=== PATIENT | female | born 1990 | race Caucasian/White ===

== ENCOUNTER 2024-11-26 10:49 | Emergency (ER) | payer BC ==
[~2024-11-26] VITALS: Ht 162.6 cm; Wt 68.0 kg
[2024-11-26] MEDS ORDERED: ONDANSETRON 4 MG/2 ML VIAL ONE (11:07)
[2024-11-26] MEDS ORDERED: MORPHINE SULFATE 4 MG/1 ML DISP.SYRIN ONE (11:07)
[2024-11-26] MEDS ORDERED: PANTOPRAZOLE SODIUM 40 MG VIAL ONE (11:07)
[2024-11-26] MEDS: IV NORMAL SALINE 1000 ML BAG IV ONE (11:13)
[2024-11-26] MEDS: MORPHINE SULFATE 2 MG/1 ML DISP.SYRIN IV ONE (11:14)
[2024-11-26] MEDS: PANTOPRAZOLE SODIUM IV 40 MG in IV DEXTROSE 5% 100 ML IV ONE (11:14)
[2024-11-26] MEDS: METOCLOPRAMIDE HCL 10 MG/2 ML VIAL IV ONE (11:14)
[2024-11-26 11:17] LABS: BASOPHILS # (AUTO) 0.1 K/UL (0.0-0.2); BASOPHILS % (AUTO) 0.6 % (0.0-2.0); EOSINOPHILS % (AUTO) 0.2 % (0.0-7.0); HEMATOCRIT 40.1 % (31.2-41.9); HEMOGLOBIN 13.9 g/dL (10.9-14.3); LYMPHOCYTES # (AUTO) 1.9 K/uL (0.8-4.8); LYMPHOCYTES % (AUTO) 21.4 % (20.5-51.5); MEAN CORPUSCULAR HEMOGLOBIN 29.9 uug (24.7-32.8); MEAN CORPUSCULAR HGB CONC 35 g/dL (32.3-35.6); MEAN CORPUSCULAR VOLUME 86.5 fL (75.5-95.3); MONOCYTES # (AUTO) 0.4 K/uL (0.1-1.30); MONOCYTES % (AUTO) 4.8 % (0.0-11.0); NEUTROPHILS # (AUTO) 6.4 K/uL (1.8-8.9); PLATELET COUNT (AUTO) 343 K/uL (179-408); RED BLOOD CELL COUNT(AUTO) 4.63 MIL/uL (3.63-4.92); RED CELL DISTRIBUTION WIDTH 12.5 % (12.3-17.7); WHITE BLOOD COUNT (AUTO) 8.8 K/uL (3.8-11.8)
[2024-11-26 11:21] LABS: *BILIRUBIN,URIN NEGATIVE (NEGATIVE); *BLOOD, URINE NEGATIVE (NEGATIVE); *CLARITY,URINE CLEAR (CLEAR); *COLOR,URINE YELLOW (YELLOW); *KETONES,URINE NEGATIVE (NEGATIVE); *PROTEIN,URINE TRACE (NEGATIVE); *UROBILINOGEN,URINE 0.2 E.U./dl (NORMAL); LEUKOCYTE ESTERASE ,URINE NEGATIVE (NEGATIVE); NITRITE, URINE NEGATIVE (NEGATIVE); PH,URINE 8.5 (5.0-8.0); UGLUCOSE NEGATIVE (NEGATIVE)
[2024-11-26 11:22] LABS: *URINE HCG, QUAL NEGATIVE (NEGATIVE)
[2024-11-26 11:23] LABS: DIFFERENTIAL COMMENT 1
[2024-11-26 11:24] LABS: BACTERIA,URINE FEW /HPF (NONE SEEN); SQUAMOUS EPITHELIAL CELL,UR FEW /HPF (NONE SEEN); WBC,URINE 0-3 /HPF (0-3)
[2024-11-26 11:26] LABS: CALCIUM 9.2 mg/dL (8.5-10.1); CREATININE 0.8 mg/dL (0.6-1.3)
[2024-11-26 11:32] LABS: ALBUMIN 4.1 g/dL (3.4-5.0); BILIRUBIN,DIRECT 0.2 mg/dL (0.0-0.2); BILIRUBIN,TOTAL 0.6 mg/dL (0.2-1.0); TOTAL PROTEIN, SERUM 7.8 g/dL (6.4-8.2)
[2024-11-26] MEDS ORDERED: FAMO40TA7 PO (12:57)
[2024-11-26 13:09] VITALS: BP 110/67; O2SAT 99
== END 2024-11-26 13:09 | disposition home or self-care (01) ==
LOC: ER 10:49
DX: K29.00 Acute gastritis without bleeding (principal)
CPT/HCPCS: 99284; 96365; 96375; 80076; 80048; 81001; 84703; 83690; 85025; 84484; 36415; J2405; J2470 ×2; J2270; J7040; A4606; A4663